=== PATIENT | male | born 1955 | race Caucasian/White ===

== ENCOUNTER 2016-12-07 11:08 | Day surgery (SDC) | payer OTHER ==
[~2016-12-07] VITALS: Ht 180.3 cm; Wt 69.3 kg
[~2016-12-07 11:08] MED LIST: ALPR0.5T6 PO; HYDR-3498 PO; ZOLP10TA5 PO
[2016-12-07 12:29] VITALS: Ht 180.3 cm; Wt 69.3 kg
[2016-12-07 13:15] VITALS: BP 103/68; PULSE 61; RESP 12
--- NOTE | 2016-12-07 13:46 | OPPN ---
Date/Time of Note Date/Time of Note DATE: 12/07/16 TIME: 13:43 Operative Report Free Text/Dictation If patient's diarrhea continue consider small bowel series and capsule enteroscopy thank you Preoperative Diagnosis Diarrhea weight loss Postoperative Diagnosis Mild colonoscopy except for a 2 mm polyp in the sigmoid colon Operation/Procedure Performed Autoscopy multiple biopsy random biopsy of the colon 2millimeters polyp taken out by cold biopsy forceps Provider: SOPHIE BOYD MD Anesthesia Type: moderate sedation (Versed 4 mg iv /fentanyl 50 mcg/time for moderate sedation 14 minutes) Estimated blood loss: none Transfusion Required: no Specimen: none Grafts/Implants: none Complications: no SOPHIE BOYD MD Dec 07, 2016 13:46
[2016-12-07] MEDS ORDERED: FENTAnyl 50 MCG/ML VIAL ONE (13:52)
[2016-12-07] MEDS ORDERED: MIDAZOLAM 1 MG/ML 2 ML INJ ONE ×2 (13:53)
[2016-12-07 14:12] VITALS: BP 96/56; PULSE 65; RESP 14
--- NOTE | 2016-12-11 12:39 | GILP ---
DATE OF PROCEDURE: 12/07/2016 PROCEDURE PERFORMED: Colonoscopy and biopsy, randomly; also one small polyp removed in the descending colon. PREOPERATIVE DIAGNOSIS: Diarrhea, weight loss. POSTOPERATIVE DIAGNOSIS: Normal colonic mucosa except for a 2 mm polyp in the sigmoid colon. DESCRIPTION OF PROCEDURE: After obtaining informed consent, he was sedated with 4 mg Versed, 50 mcg of fentanyl. An Olympus video colonoscope advanced all the way to cecum. Appendiceal opening, ileocecal valve identified. Entire colonoscopy, the mucosa was normal, no colitis, but random biopsies done to rule out any microscopic colitis because of his history of diarrhea. On the way out in the descending and sigmoid colon area, a 2 mm polyp was noted. This was removed by cold biopsy forceps. Rectum also unremarkable. Upon removal of the scope, patient had no complication. PLAN: Await for biopsy report, follow up as outpatient. If necessary, small bowel series will be done if he continues to have diarrhea, and a CT scan probably is indicated in this patient if the weight loss continues. Dictated By: Jenifer Acevedo MD /[email or web address]/[email or web address] /Document#: [id number] ; REFERRING DR ELLY SHARP
== END 2016-12-07 15:41 | disposition home or self-care (01) ==
LOC: GIL 11:08
PROVIDERS: ATTEND Internal Medicine
DX: D12.5 Benign neoplasm of sigmoid colon (principal)
CPT/HCPCS: 45380; 88305; J2250; J3010; Z7610